=== PATIENT | female | born 1980 | race Caucasian/White ===

== ENCOUNTER 2025-01-02 15:49 | Emergency (ER) | payer SELFPAY ==
--- NOTE | 2025-01-02 16:17 | EDPHYS ---
Physician Documentation [facility] Name: Divina Joya Age: 44 yrs Sex: Female : 1980 Arrival Date: 01/02/2025 Time: 15:49 Bed IW6 Private MD: ED Physician uTng Walker HPI: 01/02 16:21 This 44 yrs old Female presents to ER via Ambulatory with complaints of PERSONAL. kb 16:21 Pt is a 44 year old female who presents for congestion, red/watery/swollen left eye and kb spitting up mucus after being exposed to chlorine gas yesterday. States she was outside in [place] at time of leak from the plant and her symptoms have not improved. Denies fever, shortness of breath. . Historical: - Allergies: 16:13 No Known Allergies; hb - Immunization history:: Adult Immunizations up to date. - Infectious Disease History:: Denies. ROS: 16:20 Constitutional: As per HPI kb Exam: 16:20 Constitutional: This is a well developed, well nourished patient who is awake, alert, kb and in no acute distress. Head/Face: Normocephalic, atraumatic. ENT: Moist Mucous membranes Cardiovascular: Regular rate Respiratory: Respirations even and unlabored. No increased work of breathing. Talking in full sentences Skin: Warm, dry with normal turgor. Normal color. MS/ Extremity: Pulses equal, no cyanosis. Neurovascular intact. Full, normal range of motion. Neuro: Awake and alert, GCS 15, oriented to person, place, time, and situation. 16:20 Eyes: Periorbital structures: swelling, that is mild, on the left lower eyelid, Pupils: equal, round, and reactive to light and accomodation, Extraocular movements: intact throughout, Conjunctiva: injected, in the left eye, Vital Signs: 16:14 BP 113 / 67; Pulse 72; Resp 16; Temp 97.7; Pulse Ox 100% on R/A; Pain 0/10; hb 16:14 Pain Scale: Adult hb MDM: 15:55 Medical Screening Exam initiated kb 16:20 Differential diagnosis: chemical exposure, conjunctivitis, pneumonia. Data reviewed: kb vital signs, nurses notes. I considered the following discharge prescriptions or medication management in the emergency department I discussed and recommended Over The Counter medications. Test considered but Not performed: X-ray: chest xray considered but resp even and unlabored, lungs clear bilaterally. Counseling: I had a detailed discussion with the patient and/or guardian regarding the historical points, exam findings, and any diagnostic results supporting the discharge/admit diagnosis, the need for outpatient follow up, a family practitioner, to return to the emergency department if symptoms worsen or persist or if there are any questions or concerns that arise at home. Administered Medications: No medications were administered Disposition: 17:32 Co-signature as Attending Physician, Tung Walker MD I reviewed the patient's care rt provided by the Advanced Practice Provider and agree with the diagnosis and treatment plan. Disposition Summary: 01/02/25 16:17 Discharge Ordered Notes: Location: Home kb Condition: Stable kb Diagnosis - Unspecified acute conjunctivitis, left eye kb - Contact with and (suspected) exposure to hazardous, chiefly nonmedicinal, chemicals kb Followup: kb - With: Emergency Department - When: As needed - Reason: Worsening of condition Followup: kb - With: Private Physician - When: 2 - 3 days - Reason: Recheck today's complaints, Continuance of care, Re-evaluation by your physician Discharge Instructions: - Discharge Summary Sheet kb - Chemical Conjunctivitis, Adult, [id number] kb Forms: - Medication Reconciliation Form kb - Antibiotic Education kb - Prescription Opioid Use kb - Patient Portal Instructions kb - Leadership Thank You Letter kb Prescriptions: - Vigamox 0.5 % Ophthalmic Drops - instill 1 drop OPHTHALMIC route every 8 hours for 7 days; 5 milliliter; kb Refills: 0, Product Selection Permitted Signatures: Luci Olmos FNP-C FNP-Ckb Baxter, Heather, GREGORY RN Tung Walker MD MD rt
--- NOTE | 2025-01-02 16:17 | ER ---
Nurse's Notes [facility] Name: Divina Joya Age: 44 yrs Sex: Female : 1980 Arrival Date: 01/02/2025 Time: 15:49 Bed IW6 Private MD: Diagnosis: Unspecified acute conjunctivitis, left eye;Contact with and (suspected) exposure to hazardous, chiefly nonmedicinal, chemicals Presentation: 01/02 16:11 Chief complaint: Left periorbital swelling and itching on neck x 2 days. Coronavirus hb screen: At this time, the client does not indicate any symptoms associated with coronavirus-19. Ebola Screen: No symptoms or risks identified at this time. Initial Sepsis Screen: Does the patient meet any 2 criteria? No. Patient's initial sepsis screen is negative. Does the patient have a suspected source of infection? No. Patient's initial sepsis screen is negative. Risk Assessment: Do you want to hurt yourself or someone else? Patient reports no desire to harm self or others. Onset of symptoms was January 01, 2025. 16:11 Method Of Arrival: Ambulatory hb 16:11 Acuity: EZE 4 hb Historical: - Allergies: 16:13 No Known Allergies; hb - Immunization history:: Adult Immunizations up to date. - Infectious Disease History:: Denies. Vital Signs: 16:14 BP 113 / 67; Pulse 72; Resp 16; Temp 97.7; Pulse Ox 100% on R/A; Pain 0/10; hb 16:14 Pain Scale: Adult hb ED Course: 15:53 Patient arrived in ED. gl 15:55 Luci Olmos [facility]-C [facility]. kb 15:55 Tung Walker MD is Attending Physician. kb 16:13 Triage completed. hb 16:14 Arm band placed on. hb Administered Medications: No medications were administered Outcome: 16:17 Discharge ordered by . kb 16:24 Patient left the ED. hb Signatures: Luci Olmos FNP-C FNP-Ckb Baxter, Heather, RN RN hb Lorna Goff, Reg Reg gl
[2025-01-02 16:39] VITALS: BP 113/67; TEMP 97.7; O2SAT 100
== END 2025-01-02 16:24 | disposition home or self-care (01) ==
LOC: ER 15:49
DX: H10.32 Unspecified acute conjunctivitis, left eye (principal); Z77.098 Contact with and (suspected) exposure to other hazardous, chiefly nonmedicinal, chemicals